=== PATIENT | male | born 1965 | race Two or more races ===

== ENCOUNTER 2024-12-05 09:50 | Day surgery (SDC) | payer MEDICAID, SELFPAY ==
[2024-12-04 15:02] VITALS: BMI 28.1
[2024-12-05] VITALS (13 sets, daily range): BP systolic 130–173; BP diastolic 80–114; PULSE 56–82; RESP 11–22; TEMP 36.2–36.9; O2SAT 95–99; BMI 29.9
[2024-12-05] MEDS: RINGERS LACTATED 1000 ML 1,000 ML 60 ML IV (09:55)
--- NOTE | 2024-12-05 10:31 | SUR.OPER ---
1025 Procedure started late due to pt being routed to wrong facility
--- NOTE | 2024-12-05 11:05 | SUR.PHASEII ---
1106 Patient arrived to recovery resting comfortably in [facility], on oxygen 3L via nasal cannula, breathing unlabored, vital signs stable, denies pain and nausea, report received from Amarilis VICTORIA
--- NOTE | 2024-12-05 11:54 | SUR.PHASEII ---
1154 Patient meets discharge criteria from recovery, awake and alert, breathing unlabored, vital signs stable, denies pain and nausea, drinking water; tolerating well, able to dress himself into his clothing, voided in the restroom prior to discharge, discharge instructions given to patient and patients with the assistance of the telephone classified ad taker Mell SALMON, signed discharge instructions. Patient given all his belongings prior to discharge, transported via wheelchair and left in a private vehicle.
== END 2024-12-05 11:54 | disposition home or self-care (01) ==
PROVIDERS: PCP Physician Assistant; Referring Provider Specialist; Visit Provider Specialist
PROC: (CPT 43239; principal; 2024-12-05 09:30)
DX: K22.4 Dyskinesia of esophagus (principal); Z98.890 Other specified postprocedural states
CPT/HCPCS: 43248; J1200; J2250; J3010; J7120; A9270

== ENCOUNTER 2025-04-03 11:15 | Day surgery (SDC) | payer MEDICAID, SELFPAY ==
[2025-03-30 15:02] VITALS: BMI 29.9
[2025-04-03] VITALS (12 sets, daily range): BP systolic 125–173; BP diastolic 64–94; PULSE 56–85; RESP 14–18; TEMP 36.4–36.7; O2SAT 95–99; BMI 29.5
[2025-04-03] MEDS: RINGERS LACTATED 1000 ML 1,000 ML 60 ML IV (13:44)
[2025-04-03] MEDS: ONDANSETRON INJ 2 MG/ML INJ 2 ML 4 MG IV (14:01)
--- NOTE | 2025-04-03 14:18 | SUR.PHASEII ---
1418 patient arrived to recovery resting comfortably in [facility], drowsy and able to arouse with verbal prompting, breathing unlabored, vital signs stable, denies pain and nausea, report received from Marissa VICTORIA
--- NOTE | 2025-04-03 15:05 | SUR.PHASEII ---
1505 Patient meets discharge criteria from recovery, awake and alert, breathing unlabored, vital signs stable, denies pain and nausea, drinking water; tolerating well, patient voided in the restroom prior to discharge, able to dress himself into his clothing discharge instructions given to patient and patients with the assistance of the hospital oracle analyst Belinda, signed discharge instructions. Patient given all his belongings prior to discharge, transported via wheelchair and left in a private vehicle.
== END 2025-04-03 15:05 | disposition home or self-care (01) ==
PROVIDERS: PCP Family Medicine; Referring Provider Specialist; Visit Provider Specialist
PROC: (CPT 43239; principal; 2025-04-03 13:00)
DX: R13.10 Dysphagia, unspecified (principal); Z98.890 Other specified postprocedural states; K22.4 Dyskinesia of esophagus
CPT/HCPCS: 43235; 43450; A4649; J1200; J2250; J2405; J3010; J7120; A9270

== ENCOUNTER → 2025-05-22 | Outpatient (CLI) | payer MEDICAID, SELFPAY ==
--- NOTE | 2025-05-22 09:00 | XR_ITS ---
EXAMINATION: Esophagram standard Fluoroscopy 17 spot fluoroscopic films of the esophagus Upright PA chest Upright soft tissue lateral neck single view Date and time: May 22, 2025, 1036 hours INDICATIONS: Hiatal hernia surgery 1 year ago, food gets stuck in the stomach 1 year TECHNIQUE AND FINDINGS: Patient swallowed thin barium were 17 spot fluoroscopic films of the esophagus Fluoroscopy 0.1-minute radiation dose 65.97 mGy Primary peristaltic esophageal waves Mild intermittent gastroesophageal reflux Stricture at the gastroesophageal junction, 80% Normal epiglottis on the soft tissue lateral neck Minor prominence left ventricle lungs are clear on the PA single chest view IMPRESSION: Mild intermittent gastroesophageal reflux Stricture at the gastroesophageal junction, 80%, which may relate to reflux esophagitis, clinical correlation advised
== END | disposition home or self-care (01) ==
LOC: SDIM 09:00
PROVIDERS: PCP Family Medicine; Referring Provider Specialist; Visit Provider Specialist
DX: K21.9 Gastro-esophageal reflux disease without esophagitis (principal); K22.2 Esophageal obstruction
CPT/HCPCS: 74220; A4649